=== PATIENT | male | born 1965 | race African-American/Black ===

== ENCOUNTER 2017-06-15 14:43 | Emergency (ER) | payer BC, OTHER ==
[2017-06-15 14:57] VITALS: BP 161/97
--- NOTE | 2017-06-15 15:47 | UC ---
Janeen Paige Thomas, scribed for Randall Guzman MD on 06/15/17 at 1506 . Ear Complaint HPI - HPI Summary HPI Summary: The patient is a 51 year old male complaining of right-sided facial pain and right ear pain that began last night. At first, he thought that he may be having a tooth ache, so he went to his dentist. His dentist did not find anything abnormal, although infection was raised as a possibility. The area is not significantly tender, but the patient wanted to make sure that he did not have an otitis media. He denies difficulty swallowing. - History of Current Complaint Chief Complaint: UCEar Stated Complaint: EAR ACHE Time Seen by Provider: 06/15/17 14:59 Hx Obtained From: Patient Onset/Duration: Lasting Days - 1, Still Present Severity Currently: Mild Pain Intensity: 3 Pain Scale Used: 0-10 Numeric Aggravating Factors: Other - He has point tenderness Alleviating Factors: Nothing Associated Signs/Symptoms: Negative: Discharge - Allergies/Home Medications Allergies/Adverse Reactions: Allergies Allergy/AdvReac Type Severity Reaction Status Date / Time lisinopril Allergy Coughing Verified 06/15/17 14:56 Home Medications: Home Medications Valsartan TAB* [Diovan TAB*] 40 mg PO BID 06/15/17 [History Confirmed 06/15/17] PMH/Surg Hx/FS Hx/Imm Hx Previously Healthy: No - HLD, GERD - Surgical History Surgical History: Yes Surgery Procedure, Year, and Place: cysts removed from bilat ears, vasectomy, umbilical hernia repair. - Family History Known Family History: Positive: Hypertension - Social History Alcohol Use: Weekly Substance Use Type: None Smoking Status (MU): Never Smoked Tobacco Review of Systems Constitutional: Negative - fever ENT: Ear Ache - right, Other - Right-sided facial pain; NEGATIVE: difficulty swallowing Is Patient Immunocompromised?: No All Other Systems Reviewed And Are Negative: Yes Physical Exam - Summary Physical Exam Summary: VITAL SIGNS: Reviewed. GENERAL: Patient is a well-developed and nourished male who is lying comfortable in the stretcher. Patient is not in any acute respiratory distress. HEAD AND FACE: Normocephalic. EYES: PERRLA, EOMI x 2. EARS: Hearing grossly intact. Both TMs are normal on examination. MOUTH: Oropharynx within normal limits. NECK: Supple, trachea is midline, and no JVD. There is no trismus, TMJ tenderness, lymphadenopathy, or carotid bruit. There is point tenderness to the sternocleidomastoid muscle. CHEST: Symmetric, no tenderness at palpation LUNGS: Clear to auscultation bilaterally. No wheezing or crackles. CVS: Regular rate and rhythm, S1 and S2 present, no murmurs or gallops appreciated. ABDOMEN: Soft, non-tender. Bowel sounds are normal. No abdominal abnormal pulsations. EXTREMITIES: Full ROM in all major joints, no edema, no cyanosis or clubbing. NEURO: Alert and oriented x 3. No acute neurological deficits. Speech is normal and follows commands. SKIN: Dry and warm Triage Information Reviewed: Yes Vital Signs: Initial Vital Signs Temp 98.2 F 06/15/17 14:52 Pulse 110 06/15/17 14:52 Resp 18 06/15/17 14:52 BP 161/97 06/15/17 14:52 Pulse Ox 100 06/15/17 14:52 Vital Signs Reviewed: Yes Ear Complaint Course/Dx - Course Course Of Treatment: The patient is a 51 year old male complaining of right- sided facial pain and right ear pain that began last night. The area is not significantly tender, but the patient wanted to make sure that he did not have an otitis media. Both TMs are normal on examination. There is no trismus, TMJ tenderness, lymphadenopathy, or carotid bruit. There is point tenderness to the sternocleidomastoid muscle. The patient is diagnosed with facial pain. The patient was instructed to take ibuprofen as needed for the pain. The patient was found to have increased BP in UC. The patient will follow up with PCP for better control of BP. I discussed all the findings and test results with the patient. Patient was instructed to return to the urgent care or go to ER immediately if any of the symptoms return or worsen. Plan of care was discussed with the patient, and patient understands and agrees. All questions were answered to patient satisfaction. There were no further complaints or concerns. - Differential Dx/Diagnosis Provider Diagnoses: Facial pain Discharge - Sign-Out/Discharge Documenting (check all that apply): Discharge - Discharge Plan Condition: Stable Disposition: HOME Patient Education Materials: Atypical Facial Pain (ED) Referrals: Flori Sweeney MD [Primary Care Provider] - Additional Instructions: Take Ibuprofen as needed. If pain continues return to UC or go to the ED for further assessment. The documentation as recorded by the Janeen byrnes Thomas accurately reflects the service I personally performed and the decisions made by , Randall Guzman MD.
== END 2017-06-15 15:18 | disposition home or self-care (01) ==
LOC: UCEAST 14:43
DX: G50.1 Atypical facial pain (principal); H92.01 Otalgia, right ear; E78.5 Hyperlipidemia, unspecified; K21.9 Gastro-esophageal reflux disease without esophagitis; Z88.8 Allergy status to other drugs, medicaments and biological substances
CPT/HCPCS: 99211; G0463

== ENCOUNTER 2017-06-17 17:49 | Emergency (ER) | payer OTHER ==
[2017-06-17] MEDS ORDERED: Proparacaine 0.5% OPHTH.SOL* 15 ML BTL RIGHT EYE ONE (19:10)
--- NOTE | 2017-06-17 20:08 | RAD ---
Indication: Worst headache, right arm pain. CT of the brain was performed without IV contrast. Ventricular structures are midline. No midline shift is noted. The extra-axial spaces are unremarkable. There is no evidence of intracranial mass or hemorrhage. No other high or low density lesions are identified. Mastoid air cells and paranasal sinuses are otherwise unremarkable. IMPRESSION: There is no evidence of intracranial mass or hemorrhage noted.
--- NOTE | 2017-06-17 20:20 | ED ---
Headache - HPI Summary HPI Summary: Complains of worst headache ever, right ear pain, right-sided neck pain, rash to right side occipital area, pain behind right eye 3 days. Patient saw dentist believing it to be a toothache, dentist denied dental source of pain. Patient denies fever, neck stiffness, vision change, cough, sore throat, CP, SOB , N/V/D, abdomen pain, change in urinary BM. Denies history of shingles or chickenpox, or vaccination for same.. Medical history as HTN. Denies anticoag , regular use of EtOH, history of headaches. - History Of Current Complaint Chief Complaint: EDHeadache Stated Complaint: HEADACHE Time Seen by Provider: 06/17/17 18:36 Hx Obtained From: Patient Onset/Duration: Gradual Onset Initially Headache Was: "Worst Headache Ever" Currently Pain Is: Moderate Timing: Constant Character: Sharp, Dull, Throbbing Location of Headache: Parietal, Occipital Aggravating Factor: Nothing Allevating Factors: Nothing Associated Signs And Symptoms: Neck Pain - Risk Factors SAH Risk Factors: -Malian, Hypertension Meningitis Risk Factors: Negative SDH Risk Factors: Male Temporal Arteritis Risk Factors: Negative - Allergies/Home Medications Allergies/Adverse Reactions: Allergies Allergy/AdvReac Type Severity Reaction Status Date / Time lisinopril Allergy Coughing Verified 06/15/17 14:56 PMH/Surg Hx/FS Hx/Imm Hx Cardiovascular History: Reports: Hx Hypertension - Surgical History Surgery Procedure, Year, and Place: cysts removed from bilat ears, vasectomy, umbilical hernia repair. Infectious Disease History: No Infectious Disease History: Denies: Traveled Outside the [place] in Last 30 Days - Family History Known Family History: Positive: Hypertension - Social History Alcohol Use: Weekly Substance Use Type: Reports: None Smoking Status (MU): Never Smoked Tobacco Review of Systems Constitutional: Negative Eyes: Negative Positive: Ear Ache Cardiovascular: Negative Respiratory: Negative Gastrointestinal: Negative Genitourinary: Negative Musculoskeletal: Negative Positive: Rash Neurological: Negative Psychological: Normal All Other Systems Reviewed And Are Negative: Yes Physical Exam - Summary Physical Exam Summary: Vesicular rash to right side posterior head. No lesions to nose, face, right eye. No indication of trauma to face or head. TMs normal. Full range of motion of jaw. Tenderness along the sternocleidomastoid and trapezuis muscle on right side neck. Normal pharynx and nuchal mucosa. No rash on neck, chest, back noted. Occipital rash mildly tender to palpation. No temporal tenderness. Wood lamp of right eye negative Triage Information Reviewed: Yes Vital Signs On Initial Exam: Initial Vitals Temp Pulse Resp BP Pulse Ox 98.7 F 91 16 149/81 98 06/17/17 18:00 06/17/17 18:00 06/17/17 18:00 06/17/17 18:00 06/17/17 18:00 Vital Signs Reviewed: Yes Appearance: Positive: Well-Appearing Skin: Positive: Warm Head/Face: Positive: Normal Head/Face Inspection ENT: Positive: Normal ENT inspection Neck: Positive: Supple Respiratory/Lung Sounds: Positive: Clear to Auscultation Cardiovascular: Positive: Normal Abdomen Description: Positive: Nontender Musculoskeletal: Positive: Normal Neurological: Positive: Normal Psychiatric: Positive: Normal - Billy Coma Scale Best Eye Response: 4 - Spontaneous Best Motor Response: 6 - Obeys Commands Best Verbal Response: 5 - Oriented Coma Scale Total: 15 Diagnostics - Vital Signs Vital Signs Temp Pulse Resp BP Pulse Ox 06/17/17 18:00 98.7 F 91 16 149/81 98 - Laboratory Lab Statement: Any lab studies that have been ordered have been reviewed, and results considered in the medical decision making process. - CT brain w/o CT Interpretation: No Acute Changes CT Interpretation Completed By: Radiologist Headache Course/Dx - Course Course Of Treatment: Valacyclovir and pain medication - Diagnoses Provider Diagnoses: Shingles Discharge - Sign-Out/Discharge Documenting (check all that apply): Discharge - Discharge Plan Condition: Stable Disposition: HOME Patient Education Materials: Shingles (ED), Shingles Vaccine (ED) Referrals: Flori Sweeney MD [Primary Care Provider] - Additional Instructions: Follow-up with primary care. Return immediately for any new or worsening symptoms - Billing Disposition and Condition Condition: STABLE Disposition: HOME
[2017-06-17] MEDS ORDERED: Tetracaine 0.5% OPTH.SOL 4 ML* 1 DROP BTL ONE (20:37)
[2017-06-17] MEDS ORDERED: Metoclopramide TAB* 10 MG PO ONE (20:38)
[2017-06-17] MEDS ORDERED: diPHENhydraMINE PO* 50 MG PO ONE (20:38)
[2017-06-17] MEDS ORDERED: Fluorescein Sod TOPICAL 0.6* 0.6 MG TEST OPHTHALMIC ONE ×2 (20:44→20:48)
[2017-06-17] MEDS ORDERED: ValACYclovir (*) 1 GM TAB PO ONE (21:00)
[2017-06-17] MEDS ORDERED: oxyCODONE TAB* 5 MG TAB PO ONE (22:22)
[2017-06-17 22:49] VITALS: BP 153/91
== END 2017-06-17 22:49 | disposition home or self-care (01) ==
LOC: ED 17:49
DX: B02.9 Zoster without complications (principal); R51 Headache; H92.01 Otalgia, right ear; M54.2 Cervicalgia; H57.11 Ocular pain, right eye; I10 Essential (primary) hypertension; Z88.8 Allergy status to other drugs, medicaments and biological substances
CPT/HCPCS: 70450; 99283; A9270-GY

== ENCOUNTER 2017-06-29 12:16 | Emergency (ER) | payer OTHER ==
[2017-06-29 12:33] VITALS: BP 128/89
--- NOTE | 2017-06-29 13:16 | UC ---
Respiratory Complaint HPI - HPI Summary HPI Summary: 51 yo BM c/o cough w/o sputum worsening at night x 1 week associated recent bout of shingles on right lower scalp. Cough is so bad he cannot sleep at night - History of Current Complaint Chief Complaint: UCGeneralIllness Stated Complaint: COUGH FEVER Time Seen by Provider: 06/29/17 12:42 Hx Obtained From: Patient Onset/Duration: Lasting Days, Still Present Severity Initially: Moderate Severity Currently: Moderate Pain Intensity: 0 Character: Cough: Nonproductive Associated Signs And Symptoms: Positive: Negative - Allergies/Home Medications Allergies/Adverse Reactions: Allergies Allergy/AdvReac Type Severity Reaction Status Date / Time lisinopril Allergy Coughing Verified 06/15/17 14:56 Home Medications: Home Medications Atorvastatin* [Lipitor 10 MG*] 10 mg PO DAILY 06/29/17 [History Confirmed ] Omeprazole CAP* [Prilosec CAP* 20 MG] 40 mg PO DAILY 06/29/17 [History Confirmed 06/29/17] PMH/Surg Hx/FS Hx/Imm Hx Previously Healthy: No - shingles - Surgical History Surgical History: Yes Surgery Procedure, Year, and Place: cysts removed from bilat ears, vasectomy, umbilical hernia repair. - Family History Known Family History: Positive: Hypertension - Social History Alcohol Use: Occasionally Substance Use Type: None Smoking Status (MU): Never Smoked Tobacco Review of Systems Constitutional: Negative Skin: Negative Eyes: Negative ENT: Negative Respiratory: Cough Cardiovascular: Negative Gastrointestinal: Negative Genitourinary: Negative Motor: Negative Neurovascular: Negative Musculoskeletal: Negative Neurological: Negative Psychological: Negative All Other Systems Reviewed And Are Negative: Yes Physical Exam Triage Information Reviewed: Yes Appearance: Well-Appearing Vital Signs: Initial Vital Signs Temp 36.9 C 06/29/17 12:28 Pulse 74 06/29/17 12:28 Resp 18 06/29/17 12:28 BP 128/89 06/29/17 12:28 Pulse Ox 100 06/29/17 12:28 Eye Exam: Normal ENT Exam: Normal Dental Exam: Normal Neck exam: Normal Neck: Positive: 1 Respiratory: Positive: Rhonchi - with cough Cardiovascular Exam: Normal Abdominal Exam: Normal Musculoskeletal Exam: Normal Neurological Exam: Normal Psychological Exam: Normal Skin Exam: Normal UC Diagnostic Evaluation - Laboratory O2 Sat by Pulse Oximetry: 100 Respiratory Course/Dx - Course Course Of Treatment: recent bout of shingles- in light of immunosuppression due to recency of herpes zoster, will cover with Z carin for bacterial bronchitis - Differential Dx/Diagnosis Provider Diagnoses: bronchitis Discharge - Sign-Out/Discharge Documenting (check all that apply): Discharge/Admit/Transfer - Discharge Plan Condition: Stable Disposition: HOME Prescriptions: Promethazine HCl/Codeine [Prometh-Codein 6.25-10 mg/5 ml] 5 ml PO QID 7 Days #1 btl MDD 20ml Patient Education Materials: Acute Bronchitis (ED) Referrals: Flori Sweeney MD [Primary Care Provider] - Additional Instructions: Take Mucinex DM twice a day from over the counter - Billing Disposition and Condition Condition: STABLE Disposition: HOME
== END 2017-06-29 13:20 | disposition home or self-care (01) ==
LOC: UCEAST 12:16
DX: J40 Bronchitis, not specified as acute or chronic (principal); Z88.8 Allergy status to other drugs, medicaments and biological substances
CPT/HCPCS: 99212; G0463